=== PATIENT | male | born 1975 | race Caucasian/White ===

== ENCOUNTER 2019-09-01 05:44 | Emergency (ER) | payer BC ==
[~2019-09-01] VITALS: Ht 175.3 cm; Wt 68.0 kg
[2019-09-01] MEDS ORDERED: BIKTARVY 50-201 EACH (06:17)
[2019-09-02] MEDS ORDERED: PROTONIX20 MG (13:55)
== END 2019-09-01 09:40 | disposition home or self-care (01) ==
LOC: ER 05:44
DX: K21.9 Gastro-esophageal reflux disease without esophagitis (principal); R06.02 Shortness of breath